=== PATIENT | female | born 2000 | race Caucasian/White ===

== ENCOUNTER 2022-04-17 09:18 | Emergency (ER) | payer MEDICAID ==
[~2022-04-17] VITALS: Ht 175.3 cm; Wt 120.5 kg
[~2022-04-17 09:18] MED LIST: ALBU6.7H14 INH; AZIT250T PO; BUPR100T4 PO; ONDA4TAB12 PO; TRAZ150T78 PO
[2022-04-17 10:24] LABS: URINE HCG NEGATIVE (NEG)
[2022-04-17 10:29] LABS: CLARITY,URINE CLOUDY (Clear); COLOR,URINE YELLOW (Yellow); GLUCOSE, URINE NEGATIVE (Neg); KETONES,URINE NEGATIVE (Neg); LEUKOCYTE ESTERASE ,URINE NEGATIVE (Neg); NITRITES, URINE NEGATIVE (Neg); OCCULT BLOOD,URINE TRACE-LYSED (Neg); PH,URINE 5.5 (4.8-8.0); PROTEIN,URINE NEGATIVE (Neg); UROBILINOGEN,URINE 0.2 E.U/dL (0.2-1.0)
[2022-04-17 10:35] LABS: UA COLLECTION TYPE CLN CATCH MIDSTREAM
[2022-04-17 10:36] LABS: MUCUS STRANDS MODERATE /LPF (Neg); SQUAMOUS EPITHELIAL CELL,UR MANY /LPF (FEW)
[2022-04-17 10:43] LABS: BACTERIA,URINE 2+ /HPF (Neg); RBC,URINE 0-2 /HPF (0-2); WBC,URINE 0-4 /HPF (0-4)
[2022-04-17 11:04] LABS: BASOPHILS % (AUTO) 0.2 % (0-1); EOSINOPHILS # (AUTO) 0.4 X10'3 (0-0.9); EOSINOPHILS % (AUTO) 4.4 % (0-6); HEMATOCRIT 44.3 % (35.0-45.0); HEMOGLOBIN 14.9 g/dl (12.0-16.0); LYMPHOCYTES # (AUTO) 2.1 X10'3 (1.1-4.8); LYMPHOCYTES % (AUTO) 21.3 % (21-51); MEAN CORPUSCULAR HEMOGLOBIN 30.4 PG (27.0-31.0); MEAN CORPUSCULAR HGB CONC 33.6 g/dL (33.0-36.5); MEAN CORPUSCULAR VOLUME 90.4 FL (78-98); MEAN PLATELET VOLUME 9.1 FL (7.4-10.4); MONOCYTES # (AUTO) 0.7 X10'3 (0-0.9); MONOCYTES % (AUTO) 6.9 % (2-12); NEUTROPHILS # (AUTO) 6.7 X10'3 (1.8-7.7); NEUTROPHILS % (AUTO) 67.2 % (42-75); PLATELET COUNT 242 X10'3 (140-440); RED BLOOD COUNT 4.89 X10'6 (4.20-5.60); RED CELL DISTRIBUTION WIDTH 12.8 % (11.5-14.5)
[2022-04-17 11:16] LABS: ALANINE AMINOTRANSFERASE 63 U/L (12-78); ALBUMIN 4.1 G/DL (3.4-5.0); ALBUMIN/GLOBULIN RATIO 1.2 (1.1-1.5); ALKALINE PHOSPHATASE 75 IU/L (46-116); ANION GAP 9 (8-16); ASPARTATE AMINO TRANSFERASE 26 U/L (10-37); BILIRUBIN,TOTAL 0.4 MG/DL (0.1-1.0); BLOOD UREA NITROGEN 10 MG/DL (7-18); BUN/CREATININE RATIO 13.2 (6.6-38.0); CALCIUM 8.8 MG/DL (8.5-10.1); CHLORIDE 105 MMOL/L (99-107); CREATININE 0.76 MG/DL (0.40-0.90); GLUCOSE 87 MG/DL (70-104); LIPASE 70 U/L (73-393); POTASSIUM 3.6 MMOL/L (3.5-5.1); SODIUM 139 MMOL/L (135-145); TOTAL CARBON DIOXIDE 25.2 MMOL/L (24-32); TOTAL PROTEIN 7.5 G/DL (6.4-8.2); eGFR > 90 ML/MIN
[2022-04-17] MEDS ORDERED: sucralfate 1 gm tablet PO ONE (11:40)
[2022-04-17] MEDS ORDERED: mag hydrox/Alum hydrox/simeth 30ml oral suspension PO ONE (11:40)
[2022-04-17] MEDS ORDERED: LIDOcaine Viscous 15ml cup MM PRN (11:40)
[2022-04-17 11:47] VITALS: BP 144/89
[2022-04-17] MEDS ORDERED: PANT-47 PO (11:50)
--- NOTE | 2022-04-17 12:35 | NUR ---
SEEN TREATED AND DEPARTED BY PROVIDER NORI LIAO
== END 2022-04-17 12:32 | disposition home or self-care (01) ==
LOC: ER 09:19
DX: R10.13 Epigastric pain (principal); J45.909 Unspecified asthma, uncomplicated; F31.9 Bipolar disorder, unspecified; Z86.14 Personal history of Methicillin resistant Staphylococcus aureus infection; Z79.899 Other long term (current) drug therapy
CPT/HCPCS: 36415; 80053; 81001; 81025; 83690; 85025; 99284

== ENCOUNTER 2022-07-10 18:13 | Emergency (ER) | payer MEDICAID ==
[~2022-07-10] VITALS: Ht 172.7 cm; Wt 50.5 kg
[~2022-07-10 18:13] MED LIST changes: +PANT-47 PO
[2022-07-10 18:22] VITALS: BP 129/77
[2022-07-10 18:54] LABS: URINE HCG NEGATIVE (NEG)
[2022-07-10 18:56] LABS: BASOPHILS % (AUTO) 0.2 % (0-1); EOSINOPHILS # (AUTO) 0.2 X10'3 (0-0.9); EOSINOPHILS % (AUTO) 1.7 % (0-6); HEMATOCRIT 47.7 % (35.0-45.0); HEMOGLOBIN 16.2 g/dl (12.0-16.0); LYMPHOCYTES # (AUTO) 2.1 X10'3 (1.1-4.8); LYMPHOCYTES % (AUTO) 19.2 % (21-51); MEAN CORPUSCULAR HEMOGLOBIN 30.1 PG (27.0-31.0); MEAN CORPUSCULAR HGB CONC 33.9 g/dL (33.0-36.5); MEAN CORPUSCULAR VOLUME 88.7 FL (78-98); MONOCYTES # (AUTO) 0.7 X10'3 (0-0.9); MONOCYTES % (AUTO) 6.7 % (2-12); NEUTROPHILS % (AUTO) 72.2 % (42-75); PLATELET COUNT 254 X10'3 (140-440); RED BLOOD COUNT 5.37 X10'6 (4.20-5.60)
[2022-07-10 19:04] LABS: CLARITY,URINE CLOUDY (Clear); COLOR,URINE YELLOW (Yellow); GLUCOSE, URINE NEGATIVE (Neg); KETONES,URINE 40 mg/dl (Neg); LEUKOCYTE ESTERASE ,URINE NEGATIVE (Neg); NITRITES, URINE NEGATIVE (Neg); OCCULT BLOOD,URINE TRACE-INTACT (Neg); PROTEIN,URINE NEGATIVE (Neg); UROBILINOGEN,URINE 0.2 E.U/dL (0.2-1.0)
[2022-07-10 19:07] LABS: UA COLLECTION TYPE CLN CATCH MIDSTREAM
[2022-07-10 19:09] LABS: ALANINE AMINOTRANSFERASE 50 U/L (12-78); ALBUMIN 4.7 G/DL (3.4-5.0); ALBUMIN/GLOBULIN RATIO 1.6 (1.1-1.5); ALKALINE PHOSPHATASE 83 IU/L (46-116); ANION GAP 7 (8-16); ASPARTATE AMINO TRANSFERASE 22 U/L (10-37); BILIRUBIN,TOTAL 0.7 MG/DL (0.1-1.0); BLOOD UREA NITROGEN 13 MG/DL (7-18); BUN/CREATININE RATIO 14.1 (10.0-20.0); CALCIUM 9.3 MG/DL (8.5-10.1); CHLORIDE 104 MMOL/L (99-107); CREATININE 0.92 MG/DL (0.40-0.90); GLUCOSE 102 MG/DL (70-104); LIPASE 56 U/L (73-393); POTASSIUM 3.5 MMOL/L (3.5-5.1); SODIUM 137 MMOL/L (135-145); TOTAL CARBON DIOXIDE 26.2 MMOL/L (24-32); TOTAL PROTEIN 7.7 G/DL (6.4-8.2); eGFR 75 ML/MIN
[2022-07-10 19:10] LABS: BACTERIA,URINE 2+ /HPF (Neg); MUCUS STRANDS MANY /LPF (Neg); RBC,URINE 0-2 /HPF (0-2); SQUAMOUS EPITHELIAL CELL,UR MANY /LPF (FEW); WBC,URINE 0-4 /HPF (0-4)
[2022-07-10] MEDS ORDERED: LIDOcaine Viscous 15ml cup MM ONE (20:55)
[2022-07-10] MEDS ORDERED: ondansetron/PF 4mg/2ml inj IV ONE (20:55)
[2022-07-10] MEDS ORDERED: sucralfate 1 gm tablet PO ONE (20:55)
[2022-07-10] MEDS ORDERED: mag hydrox/Alum hydrox/simeth 30ml oral suspension PO ONE (20:55)
[2022-07-10] MEDS ORDERED: normal saline 1000ML IV soln IVB ONE (20:55)
--- NOTE | 2022-07-10 21:37 | NUR ---
[facility] BED 17
--- NOTE | 2022-07-10 22:05 | NUR ---
we cannot find the patient anywhere. Waiting to see if US took her somewhere.
--- NOTE | 2022-07-10 22:24 | NUR ---
still not able to find the patient, danita erickson. made aware.
== END 2022-07-10 22:24 | disposition left against medical advice (07) ==
LOC: ER 18:14
DX: R10.10 Upper abdominal pain, unspecified (principal); R19.7 Diarrhea, unspecified; R11.10 Vomiting, unspecified; F17.210 Nicotine dependence, cigarettes, uncomplicated; Z79.2 Long term (current) use of antibiotics; Z79.899 Other long term (current) drug therapy
CPT/HCPCS: 36415; 80053; 81001; 81025; 83690; 85025; 99283; J7030

== ENCOUNTER 2023-01-28 17:12 | Emergency (ER) | payer MEDICAID ==
[~2023-01-28] VITALS: Ht 174 cm; Wt 109.8 kg
[2023-01-28 17:58] LABS: URINE HCG NEGATIVE (NEG)
[2023-01-28 17:59] LABS: BILIRUBIN,URINE NEGATIVE (Neg); COLOR,URINE YELLOW (Yellow); GLUCOSE, URINE NEGATIVE (Neg); KETONES,URINE NEGATIVE (Neg); LEUKOCYTE ESTERASE ,URINE NEGATIVE (Neg); NITRITES, URINE NEGATIVE (Neg); OCCULT BLOOD,URINE MODERATE (Neg); PROTEIN,URINE NEGATIVE (Neg)
[2023-01-28 18:13] LABS: BASOPHILS # (AUTO) 0.1 X10'3 (0-0.2); BASOPHILS % (AUTO) 0.5 % (0-1); EOSINOPHILS # (AUTO) 0.1 X10'3 (0-0.9); EOSINOPHILS % (AUTO) 1.2 % (0-6); HEMATOCRIT 40.3 % (35.0-45.0); HEMOGLOBIN 13.6 g/dl (12.0-16.0); LYMPHOCYTES # (AUTO) 2.9 X10'3 (1.1-4.8); LYMPHOCYTES % (AUTO) 29.1 % (21-51); MEAN CORPUSCULAR HEMOGLOBIN 30.1 PG (27.0-31.0); MEAN CORPUSCULAR HGB CONC 33.6 g/dL (33.0-36.5); MEAN CORPUSCULAR VOLUME 89.4 FL (78-98); MONOCYTES # (AUTO) 0.9 X10'3 (0-0.9); MONOCYTES % (AUTO) 8.9 % (2-12); NEUTROPHILS % (AUTO) 60.3 % (42-75); PLATELET COUNT 270 X10'3 (140-440); RED BLOOD COUNT 4.51 X10'6 (4.20-5.60); RED CELL DISTRIBUTION WIDTH 12.7 % (11.5-14.5)
[2023-01-28 18:13] LABS: UA COLLECTION TYPE CLN CATCH MIDSTREAM
[2023-01-28 18:20] LABS: BACTERIA,URINE 2+ /HPF (Neg); SQUAMOUS EPITHELIAL CELL,UR FEW /LPF (FEW)
[2023-01-28 18:21] LABS: AMORPHOUS PHOSPHATES 2+
[2023-01-28 18:26] LABS: CLARITY,URINE SLIGHTLY CLOUDY (Clear)
[2023-01-28 18:30] LABS: ALANINE AMINOTRANSFERASE 37 U/L (12-78); ALBUMIN 3.8 G/DL (3.4-5.0); ALBUMIN/GLOBULIN RATIO 1.1 (1.1-1.5); ALKALINE PHOSPHATASE 83 IU/L (46-116); ANION GAP 10 (8-16); ASPARTATE AMINO TRANSFERASE 15 U/L (10-37); BILIRUBIN,TOTAL 0.3 MG/DL (0.1-1.0); BLOOD UREA NITROGEN 14 MG/DL (7-18); BUN/CREATININE RATIO 17.7 (10.0-20.0); CALCIUM 9.3 MG/DL (8.5-10.1); CHLORIDE 103 MMOL/L (99-107); CREATININE 0.79 MG/DL (0.40-0.90); GLUCOSE 97 MG/DL (70-104); LIPASE 29 U/L (16-77); POTASSIUM 3.5 MMOL/L (3.5-5.1); SODIUM 138 MMOL/L (135-145); TOTAL CARBON DIOXIDE 25.4 MMOL/L (24-32); TOTAL PROTEIN 7.4 G/DL (6.4-8.2); eCRCL 113 ML/MIN; eGFR 89 ML/MIN
[2023-01-28] MEDS ORDERED: cephalexin 250mg capsule PO ONE (21:00)
[2023-01-28] MEDS ORDERED: medroxyprogesterone acet. 2.5mg tablet PO SCH (21:00)
[2023-01-28] MEDS ORDERED: CEPH250T PO (21:01)
[2023-01-28] MEDS ORDERED: MEDR10TA PO (21:01)
[2023-01-28 21:20] VITALS: BP 116/79; PULSE 98; RESP 18; TEMP 98; O2SAT 100
== END 2023-01-28 21:34 | disposition home or self-care (01) ==
LOC: ER 17:13
DX: N93.9 Abnormal uterine and vaginal bleeding, unspecified (principal); N39.0 Urinary tract infection, site not specified
CPT/HCPCS: 36415; 76856; 80053; 81001; 81025; 83690; 85025; 87077; 87088; 87186; 93976; 99284

== ENCOUNTER 2023-08-09 20:38 | Emergency (ER) | payer BC, MEDICAID ==
[~2023-08-09] VITALS: Ht 172.7 cm; Wt 118.2 kg
[~2023-08-09 20:38] MED LIST changes: +MEDR10TA PO
[2023-08-09] MEDS ORDERED: LIDOcaine 2% Viscous 15ml cup MM ONE (21:50)
[2023-08-09] MEDS ORDERED: mag hydrox/Alum hydrox/simeth 30ml oral suspension PO ONE (21:50)
[2023-08-09 22:06] LABS: BASOPHILS % (AUTO) 0.5 % (0-1); EOSINOPHILS # (AUTO) 0.1 X10'3 (0-0.9); EOSINOPHILS % (AUTO) 0.8 % (0-6); HEMATOCRIT 38.4 % (35.0-45.0); HEMOGLOBIN 13.4 g/dl (12.0-16.0); LYMPHOCYTES # (AUTO) 2.1 X10'3 (1.1-4.8); MEAN CORPUSCULAR HEMOGLOBIN 30.8 PG (27.0-31.0); MEAN CORPUSCULAR HGB CONC 34.9 g/dL (33.0-36.5); MEAN CORPUSCULAR VOLUME 88.4 FL (78-98); MONOCYTES # (AUTO) 0.7 X10'3 (0-0.9); MONOCYTES % (AUTO) 6.8 % (2-12); NEUTROPHILS # (AUTO) 7.1 X10'3 (1.8-7.7); NEUTROPHILS % (AUTO) 70.9 % (42-75); PLATELET COUNT 254 X10'3 (140-440); RED BLOOD COUNT 4.35 X10'6 (4.20-5.60); RED CELL DISTRIBUTION WIDTH 13.5 % (11.5-14.5)
[2023-08-09 22:45] LABS: LIPASE > 375 U/L (16-77)
[2023-08-09 23:14] LABS: ALANINE AMINOTRANSFERASE 35 U/L (12-78); ALBUMIN 3.6 G/DL (3.4-5.0); ALBUMIN/GLOBULIN RATIO 1.2 (1.1-1.5); ALKALINE PHOSPHATASE 56 IU/L (46-116); ANION GAP 11 (8-16); ASPARTATE AMINO TRANSFERASE 17 U/L (10-37); BILIRUBIN,TOTAL 0.3 MG/DL (0.1-1.0); BLOOD UREA NITROGEN 12 MG/DL (7-18); BUN/CREATININE RATIO 14.5 (10.0-20.0); CALCIUM 8.9 MG/DL (8.5-10.1); CHLORIDE 106 MMOL/L (99-107); CREATININE 0.83 MG/DL (0.40-0.90); GLUCOSE 100 MG/DL (70-104); POTASSIUM 3.7 MMOL/L (3.5-5.1); SODIUM 141 MMOL/L (135-145); TOTAL CARBON DIOXIDE 24.3 MMOL/L (24-32); TOTAL PROTEIN 6.7 G/DL (6.4-8.2); eCRCL 105 ML/MIN; eGFR 84 ML/MIN
[2023-08-09] MEDS: normal saline 1000ML IV soln IVB ONE (23:14)
[2023-08-09] MEDS: ondansetron/PF 4mg/2ml inj IV ONE (23:15)
[2023-08-10 01:11] VITALS: BP 138/88; PULSE 73; RESP 16; TEMP 98.1; O2SAT 95
== END 2023-08-10 01:13 | disposition home or self-care (01) ==
LOC: ER 20:39
DX: K85.90 Acute pancreatitis without necrosis or infection, unspecified (principal); R10.12 Left upper quadrant pain; J45.909 Unspecified asthma, uncomplicated; F31.9 Bipolar disorder, unspecified; Z79.899 Other long term (current) drug therapy; Z79.2 Long term (current) use of antibiotics
CPT/HCPCS: 36415; 76700; 80053; 83690; 85025; 96361; 96374; 99285; J2405; J7030

== ENCOUNTER 2023-09-16 11:51 | Inpatient (IN) | payer BC, MEDICAID ==
[~2023-09-16] VITALS: Ht 175.3 cm; Wt 122.7 kg
[~2023-09-16 11:51] MED LIST changes: +ONDA-243 PO; -ONDA4TAB12 PO
[2023-09-16 12:37] LABS: BASOPHILS % (AUTO) 0.2 % (0-1); EOSINOPHILS # (AUTO) 0.2 X10'3 (0-0.9); EOSINOPHILS % (AUTO) 1.7 % (0-6); HEMATOCRIT 43.6 % (35.0-45.0); HEMOGLOBIN 14.9 g/dl (12.0-16.0); LYMPHOCYTES # (AUTO) 1.6 X10'3 (1.1-4.8); LYMPHOCYTES % (AUTO) 15.4 % (21-51); MEAN CORPUSCULAR HEMOGLOBIN 30.8 PG (27.0-31.0); MEAN CORPUSCULAR HGB CONC 34.3 g/dL (33.0-36.5); MEAN CORPUSCULAR VOLUME 89.8 FL (78-98); MEAN PLATELET VOLUME 8.2 FL (7.4-10.4); MONOCYTES # (AUTO) 0.8 X10'3 (0-0.9); MONOCYTES % (AUTO) 7.4 % (2-12); NEUTROPHILS # (AUTO) 7.7 X10'3 (1.8-7.7); NEUTROPHILS % (AUTO) 75.3 % (42-75); PLATELET COUNT 260 X10'3 (140-440); RED BLOOD COUNT 4.85 X10'6 (4.20-5.60); RED CELL DISTRIBUTION WIDTH 13.2 % (11.5-14.5); WHITE BLOOD COUNT 10.3 X10'3 (4.5-11.0)
[2023-09-16 13:02] LABS: ALANINE AMINOTRANSFERASE 609 U/L (12-78); ALBUMIN 3.9 G/DL (3.4-5.0); ALKALINE PHOSPHATASE 242 IU/L (46-116); ANION GAP 10 (8-16); ASPARTATE AMINO TRANSFERASE 153 U/L (10-37); BILIRUBIN,TOTAL 5.8 MG/DL (0.1-1.0); BLOOD UREA NITROGEN 11 MG/DL (7-18); BUN/CREATININE RATIO 13.8 (10.0-20.0); CALCIUM 9.1 MG/DL (8.5-10.1); CHLORIDE 101 MMOL/L (99-107); GLUCOSE 92 MG/DL (70-104); POTASSIUM 3.7 MMOL/L (3.5-5.1); SODIUM 137 MMOL/L (135-145); TOTAL CARBON DIOXIDE 26.3 MMOL/L (24-32); eCRCL 112 ML/MIN; eGFR 87 ML/MIN
[2023-09-16 13:03] LABS: ALBUMIN/GLOBULIN RATIO 1.1 (1.1-1.5); LIPASE > 375 U/L (16-77); TOTAL PROTEIN 7.5 G/DL (6.4-8.2)
[2023-09-16] MEDS: ondansetron 4mg rapidly disintigrating tab PO ONE (13:11)
[2023-09-16 13:13] LABS: CLARITY,URINE CLOUDY (Clear); COLOR,URINE AMBER (Yellow); URINE HCG NEGATIVE (NEG)
[2023-09-16] MEDS ORDERED: magnesium hydroxide 30ml (MOM) UD suspension PO ONE (13:15)
[2023-09-16] MEDS ORDERED: methylnaltrexone br 12mg/0.6ml inj***SubQ only SQ ONE (13:15)
[2023-09-16 13:22] LABS: UA COLLECTION TYPE CLN CATCH MIDSTREAM
[2023-09-16 13:24] LABS: BACTERIA,URINE 4+ /HPF (Neg); MUCUS STRANDS FEW /LPF (Neg); SQUAMOUS EPITHELIAL CELL,UR MANY /LPF (FEW)
[2023-09-16 13:25] LABS: TRANSITIONAL EPI CELLS,URINE FEW /HPF
[2023-09-16] MEDS: normal saline 1000ml 1,000 ML IV ONE ×2 (13:36→16:19)
[2023-09-16] MEDS: morphine 4 MG/ML inj SYRINge IV ONE (13:36)
[2023-09-16] MEDS ORDERED: acetaminophen 325mg tablet PO PRN ×2 (14:30)
[2023-09-16] MEDS ORDERED: mag hydrox/Alum hydrox/simeth 30ml oral suspension PO PRN (14:30)
[2023-09-16] MEDS ORDERED: HYDROcodone/acetaminophen 5mg/325mg tablet PO PRN (14:30)
[2023-09-16] MEDS ORDERED: morphine 2 MG/ML inj. syringe IV PRN (14:30)
[2023-09-16] MEDS ORDERED: CARI3CAP PO (16:10)
[2023-09-16] MEDS ORDERED: PANT20TA18 PO (16:10)
[2023-09-16] MEDS ORDERED: PER5325T PO (16:10)
[2023-09-16] MEDS ORDERED: AMPH5CAP PO (16:10)
[2023-09-16] MEDS ORDERED: DEXT20CA4 PO (16:10)
[2023-09-16] MEDS ORDERED: ONDA-245 PO (16:11)
[2023-09-16] MEDS: dextrose 5%-1/2 normal saline 1,000 ML IV SCH (16:14)
[2023-09-16] MEDS: morphine 2 MG/ML inj. syringe IV PRN (16:14)
[2023-09-16] MEDS: piperacillin/tazo 4.5gm/100ml 100 ML IV SCH (16:40)
[2023-09-16 18:30] VITALS: BP 130/56; PULSE 83; RESP 18; TEMP 98.3; O2SAT 98
[2023-09-16 20:00] VITALS: RESP 18; O2SAT 98
[2023-09-16] MEDS: docusate sod 100mg capsule PO SCH (20:00)
[2023-09-16 22:00] VITALS: BP 125/55; PULSE 85; RESP 16; TEMP 97.9; O2SAT 99
[2023-09-17] MEDS: ondansetron/PF 4mg/2ml inj IV PRN (02:33)
[2023-09-17 06:00] VITALS: BP 126/62; PULSE 82; RESP 16; TEMP 97.9; O2SAT 97
[2023-09-17 06:05] LABS: BASOPHILS % (AUTO) 0.2 % (0-1); EOSINOPHILS # (AUTO) 0.1 X10'3 (0-0.9); HEMATOCRIT 36.2 % (35.0-45.0); HEMOGLOBIN 12.3 g/dl (12.0-16.0); LYMPHOCYTES # (AUTO) 1.6 X10'3 (1.1-4.8); LYMPHOCYTES % (AUTO) 16.2 % (21-51); MEAN CORPUSCULAR HEMOGLOBIN 30.1 PG (27.0-31.0); MEAN CORPUSCULAR VOLUME 88.7 FL (78-98); MEAN PLATELET VOLUME 8.4 FL (7.4-10.4); MONOCYTES # (AUTO) 0.8 X10'3 (0-0.9); MONOCYTES % (AUTO) 7.7 % (2-12); NEUTROPHILS # (AUTO) 7.6 X10'3 (1.8-7.7); NEUTROPHILS % (AUTO) 74.9 % (42-75); PLATELET COUNT 212 X10'3 (140-440); RED BLOOD COUNT 4.08 X10'6 (4.20-5.60); RED CELL DISTRIBUTION WIDTH 12.7 % (11.5-14.5); WHITE BLOOD COUNT 10.1 X10'3 (4.5-11.0)
[2023-09-17 06:17] LABS: ALANINE AMINOTRANSFERASE 356 U/L (12-78); ALBUMIN/GLOBULIN RATIO 0.9 (1.1-1.5); ALKALINE PHOSPHATASE 196 IU/L (46-116); ANION GAP 5 (8-16); ASPARTATE AMINO TRANSFERASE 56 U/L (10-37); BILIRUBIN,TOTAL 2.4 MG/DL (0.1-1.0); BLOOD UREA NITROGEN 7 MG/DL (7-18); BUN/CREATININE RATIO 9.5 (10.0-20.0); CALCIUM 8.6 MG/DL (8.5-10.1); CHLORIDE 104 MMOL/L (99-107); CREATININE 0.74 MG/DL (0.40-0.90); GLUCOSE 104 MG/DL (70-104); POTASSIUM 3.4 MMOL/L (3.5-5.1); SODIUM 136 MMOL/L (135-145); TOTAL CARBON DIOXIDE 27.5 MMOL/L (24-32); TOTAL PROTEIN 6.2 G/DL (6.4-8.2); eCRCL 121 ML/MIN; eGFR > 90 ML/MIN
[2023-09-17] MEDS: CARIPRAZINE 1.5 MG CAPSULE PO SCH (08:00)
[2023-09-17] MEDS: dextroamphetamine/amphetamine ER 20 MG CAP.SR.24H PO SCH (08:00)
[2023-09-17] MEDS: pantoprazole 40mg Tablet.DR PO SCH (08:00)
[2023-09-17 10:00] VITALS: BP 115/69; PULSE 86; RESP 16; TEMP 98; O2SAT 98
[2023-09-17] MEDS: dextroamphetamine/amphetamine ER 5 MG CAP.ER.24H PO SCH (12:30)
[2023-09-17] MEDS: magnesium hydroxide 30ml (MOM) UD suspension PO PRN (13:29)
[2023-09-17] MEDS ORDERED: magnesium Cl slow-release 64mg tablet PO PRN (14:55)
[2023-09-17] MEDS ORDERED: potassium Cl 20 mEq SR tablet PO PRN (14:55)
[2023-09-17] MEDS ORDERED: potassium Cl 40MEQ/1/2NS 520ml 520 ML IV PRN (14:55)
[2023-09-17] MEDS ORDERED: magnesium sulf-water 4G/100mL 100 ML IV PRN (14:55)
[2023-09-17] MEDS ORDERED: magnesium sulf-water 2g/50mL 50 ML IV PRN (14:55)
[2023-09-17] MEDS: potassium Cl 20 mEq SR tablet PO PRN (16:09)
[2023-09-17] MEDS: HYDROcodone/acetaminophen 10/325mg tab PO PRN (16:09)
[2023-09-17 18:00] VITALS: BP 129/64; PULSE 93; RESP 16; TEMP 98.4; O2SAT 99
[2023-09-17 20:00] VITALS: RESP 16; O2SAT 99
[2023-09-17] MEDS: K and/or MAG REPLACEMENT MC SCH (20:39)
[2023-09-17 22:00] VITALS: BP 98/43; PULSE 89; RESP 16; TEMP 97.4; O2SAT 100
[2023-09-18 05:00] VITALS: BP 117/56; PULSE 79; RESP 16; TEMP 97.5; O2SAT 96
[2023-09-18 06:28] LABS: BASOPHILS % (AUTO) 0.1 % (0-1); EOSINOPHILS # (AUTO) 0.1 X10'3 (0-0.9); EOSINOPHILS % (AUTO) 0.9 % (0-6); HEMATOCRIT 36.6 % (35.0-45.0); HEMOGLOBIN 12.1 g/dl (12.0-16.0); LYMPHOCYTES # (AUTO) 1.5 X10'3 (1.1-4.8); MEAN CORPUSCULAR HEMOGLOBIN 29.6 PG (27.0-31.0); MEAN CORPUSCULAR HGB CONC 33.1 g/dL (33.0-36.5); MEAN CORPUSCULAR VOLUME 89.5 FL (78-98); MEAN PLATELET VOLUME 8.6 FL (7.4-10.4); MONOCYTES % (AUTO) 8.6 % (2-12); NEUTROPHILS # (AUTO) 8.4 X10'3 (1.8-7.7); NEUTROPHILS % (AUTO) 76.4 % (42-75); PLATELET COUNT 239 X10'3 (140-440); RED BLOOD COUNT 4.09 X10'6 (4.20-5.60); RED CELL DISTRIBUTION WIDTH 12.4 % (11.5-14.5); WHITE BLOOD COUNT 11.1 X10'3 (4.5-11.0)
[2023-09-18 06:36] LABS: ALANINE AMINOTRANSFERASE 268 U/L (12-78); ALBUMIN 2.9 G/DL (3.4-5.0); ALBUMIN/GLOBULIN RATIO 0.8 (1.1-1.5); ALKALINE PHOSPHATASE 165 IU/L (46-116); ANION GAP 8 (8-16); ASPARTATE AMINO TRANSFERASE 34 U/L (10-37); BILIRUBIN,TOTAL 1.5 MG/DL (0.1-1.0); BLOOD UREA NITROGEN 3 MG/DL (7-18); CALCIUM 8.7 MG/DL (8.5-10.1); CHLORIDE 105 MMOL/L (99-107); CREATININE 0.75 MG/DL (0.40-0.90); GLUCOSE 116 MG/DL (70-104); POTASSIUM 4.1 MMOL/L (3.5-5.1); SODIUM 139 MMOL/L (135-145); TOTAL CARBON DIOXIDE 26.4 MMOL/L (24-32); TOTAL PROTEIN 6.5 G/DL (6.4-8.2); eCRCL 120 ML/MIN; eGFR > 90 ML/MIN
[2023-09-18 08:00] VITALS: RESP 16; O2SAT 96
[2023-09-18] MEDS ORDERED: methylnaltrexone br 12mg/0.6ml inj***SubQ only SQ ONE (13:35)
[2023-09-18] MEDS ORDERED: HYDR-3965 PO (15:15)
== END 2023-09-18 15:30 | disposition home or self-care (01) | DRG 439 ==
LOC: ER 11:52 → ED HOLD 14:32 → ORTHO 4S 18:10
PROVIDERS: ADMIT Internal Medicine; ATTEND Internal Medicine
DX: K85.90 Acute pancreatitis without necrosis or infection, unspecified (principal); Z68.41 Body mass index [BMI] 40.0-44.9, adult; K80.50 Calculus of bile duct without cholangitis or cholecystitis without obstruction; F31.9 Bipolar disorder, unspecified; F17.290 Nicotine dependence, other tobacco product, uncomplicated; Z90.49 Acquired absence of other specified parts of digestive tract; Z79.899 Other long term (current) drug therapy
CPT/HCPCS: 36415; 74018; 74181; 80053; 81001; 81025; 83690; 84145; 85025; 87081; 96374; 99285; G0378; J2270; J2405; J2543; J7030